=== PATIENT | female | born 1940 | race Caucasian/White ===

== ENCOUNTER 2016-07-23 02:22 | Emergency (ER) | payer OTHER ==
[2016-07-23 02:54] LABS: HEMOGLOBIN 11.5 gm/dl (12.3-15.3); RED BLOOD COUNT 3.79 M/UL (4.00-5.10); WHITE BLOOD COUNT 9.3 K/UL (4.5-11.0)
== END 2016-07-23 08:15 ==
LOC: ER1 02:22
PROVIDERS: Family Medicine
DX: K56.60 Unspecified intestinal obstruction (principal)
CPT/HCPCS: 36415; 80053; 82150; 83690; 85025; 93005; 96361; 96374; 96375; 96376; 99285; J2270; J2405

== ENCOUNTER 2020-04-21 10:38 | Emergency (ER) | payer OTHER ==
[~2020-04-21 10:38] MED LIST: BENTYL 20MG TAB20 MG PO; CYCLOBENZAPRINE5 MG PO; PROZAC40 MG PO; REGLAN10 MG PO
[2020-04-21 11:55] LABS: HEMOGLOBIN 12.1 gm/dl (12.3-15.3); RED BLOOD COUNT 4.03 M/UL (4.00-5.10); WHITE BLOOD COUNT 3.8 K/UL (4.5-11.0)
[2020-04-21 12:19] LABS: BUN/CREATININE RATIO 16 (0-10)
== END 2020-04-21 21:04 | disposition home or self-care (01) ==
LOC: ER1 10:38
PROVIDERS: Nurse Practitioner
DX: R07.89 Other chest pain (principal); Z20.822 Contact with and (suspected) exposure to COVID-19; Z91.19 Patient's noncompliance with other medical treatment and regimen; I13.10 Hypertensive heart and chronic kidney disease without heart failure, with stage 1 through stage 4 chronic kidney disease, or unspecified chronic kidney disease; E11.22 Type 2 diabetes mellitus with diabetic chronic kidney disease; N18.9 Chronic kidney disease, unspecified; E78.5 Hyperlipidemia, unspecified; E03.9 Hypothyroidism, unspecified; D63.8 Anemia in other chronic diseases classified elsewhere; Z88.0 Allergy status to penicillin; Z93.3 Colostomy status; Z95.1 Presence of aortocoronary bypass graft; Z90.49 Acquired absence of other specified parts of digestive tract; Z79.899 Other long term (current) drug therapy
CPT/HCPCS: 0240U; 71045; 80053; 81001; 82550; 82553; 83605; 83690; 83735; 83874; 84484; 85025; 85610; 93005; 96374; 96375; 99285; J2270; J2405; J7030; Q9967

== ENCOUNTER 2021-11-21 04:21 | Inpatient (IN) | payer MEDICARE, OTHER ==
[~2021-11-21] VITALS: Ht 157.5 cm; Wt 49.1 kg
[2021-11-21 05:19] LABS: HEMOGLOBIN 11.2 gm/dl (12.3-15.3); RED BLOOD COUNT 3.5 M/UL (4.00-5.10)
[2021-11-21] MEDS ORDERED: TRAMADOL HCL50 MG PO (16:18)
[2021-11-21 16:20] LABS: HEMOGLOBIN 9.4 gm/dl (12.3-15.3); WHITE BLOOD COUNT 7.7 K/UL (4.5-11.0)
[2021-11-21] MEDS ORDERED: ELIQUIS2.5 MG PO (16:20)
[2021-11-21] MEDS ORDERED: MELATONIN3 M3 PO (16:21)
[2021-11-21] MEDS ORDERED: PROZAC 20 MG CA20 MG PO (16:21)
[2021-11-21] MEDS ORDERED: PROTONIX 40 MG40 M1 PO (16:22)
[2021-11-21] MEDS ORDERED: MIRTAZAPINE45 MG PO (16:22)
[2021-11-21 16:23] LABS: RED BLOOD COUNT 2.96 M/UL (4.00-5.10)
[2021-11-22 16:18] LABS: HEMOGLOBIN 8.1 gm/dl (12.3-15.3); RED BLOOD COUNT 2.54 M/UL (4.00-5.10); WHITE BLOOD COUNT 9.4 K/UL (4.5-11.0)
[2021-11-23 04:50] LABS: HEMOGLOBIN 8.8 gm/dl (12.3-15.3); RED BLOOD COUNT 2.74 M/UL (4.00-5.10)
[2021-11-23 04:51] LABS: WHITE BLOOD COUNT 6.1 K/UL (4.5-11.0)
[2021-11-24 05:18] LABS: HEMOGLOBIN 10.4 gm/dl (12.3-15.3)
[2021-11-24 05:21] LABS: RED BLOOD COUNT 3.3 M/UL (4.00-5.10); WHITE BLOOD COUNT 3.4 K/UL (4.5-11.0)
[2021-11-25 06:11] LABS: HEMOGLOBIN 9.6 gm/dl (12.3-15.3); RED BLOOD COUNT 3.05 M/UL (4.00-5.10)
[2021-11-25 06:15] LABS: WHITE BLOOD COUNT 5.4 K/UL (4.5-11.0)
--- NOTE | 2021-11-25 18:34 | NUR ---
PER THE PATIENT SON, ROXANA MOYER, THE PT HAS BEEN DNR FOR 20 YEARS AND HE WANTS HER TO REMAIN DNR BECAUSE THAT IS WHAT SHE HAD WANTED TO BE. I SPOKE TO DR. HWANG ABOUT THE SONS REQUEST AND RECIEVED A TELEPHONE ORDER FOR DNR/DNI CODE STATUS.
[2021-11-26 04:19] LABS: HEMOGLOBIN 8.6 gm/dl (12.3-15.3)
[2021-11-26 04:29] LABS: RED BLOOD COUNT 2.7 M/UL (4.00-5.10); WHITE BLOOD COUNT 7.6 K/UL (4.5-11.0)
== END 2021-11-27 05:08 | disposition expired | DRG 353 ==
LOC: ER1 04:21 → CDU 09:47 → CCU 09:47
PROVIDERS: Emergency Medicine; Internal Medicine; Internal Medicine Pulmonary Disease; Physician Assistant Medical; ADMIT Surgery
PROC: 02HV33Z Insertion of Infusion Device into Superior Vena Cava, Percutaneous Approach (ICD-10-PCS; 2021-11-21)
PROC: B548ZZA Ultrasonography of Superior Vena Cava, Guidance (ICD-10-PCS; 2021-11-21)
PROC: 3E043XZ Introduction of Vasopressor into Central Vein, Percutaneous Approach (ICD-10-PCS; 2021-11-21)
PROC: 0WQF0ZZ Repair Abdominal Wall, Open Approach (ICD-10-PCS; principal; 2021-11-21 11:51)
PROC: B24BZZZ Ultrasonography of Heart with Aorta (ICD-10-PCS; 2021-11-22)
DX: K43.3 Parastomal hernia with obstruction, without gangrene (principal); A41.9 Sepsis, unspecified organism; G93.41 Metabolic encephalopathy; Z66 Do not resuscitate; J96.21 Acute and chronic respiratory failure with hypoxia; R65.21 Severe sepsis with septic shock; E46 Unspecified protein-calorie malnutrition; N17.9 Acute kidney failure, unspecified; E87.2 Acidosis; I13.0 Hypertensive heart and chronic kidney disease with heart failure and stage 1 through stage 4 chronic kidney disease, or unspecified chronic kidney disease; I08.3 Combined rheumatic disorders of mitral, aortic and tricuspid valves; I25.10 Atherosclerotic heart disease of native coronary artery without angina pectoris; N18.31 Chronic kidney disease, stage 3a; H91.93 Unspecified hearing loss, bilateral; K21.9 Gastro-esophageal reflux disease without esophagitis; E11.22 Type 2 diabetes mellitus with diabetic chronic kidney disease; E03.9 Hypothyroidism, unspecified; G89.29 Other chronic pain; M19.90 Unspecified osteoarthritis, unspecified site; I50.9 Heart failure, unspecified; D63.1 Anemia in chronic kidney disease; E87.6 Hypokalemia; G47.00 Insomnia, unspecified; F32.A Depression, unspecified; Z90.49 Acquired absence of other specified parts of digestive tract; Z88.8 Allergy status to other drugs, medicaments and biological substances; Z95.1 Presence of aortocoronary bypass graft; Z88.2 Allergy status to sulfonamides; Z80.9 Family history of malignant neoplasm, unspecified; Z82.49 Family history of ischemic heart disease and other diseases of the circulatory system; Z88.5 Allergy status to narcotic agent; Z88.0 Allergy status to penicillin; Z93.2 Ileostomy status
CPT/HCPCS: ECHO; 36415; 71045; 80048; 80053; 81001; 82962; 83036; 83605; 83690; 83735; 83880; 84132; 85025; 85027; 87040; 92526; 92610; 93005; 93306; 94640; 94660; 94664; 94760; 96374; 96375; 96376; 99285; C9113; J0360; J0694; J1100; J1170; J1650; J1940; J2250; J2270; J2405; J2704; J3010; J3370; J3480; J3486; J7030; J7040; J7070; P9047